=== PATIENT | male | born 1970 | race African-American/Black ===

== ENCOUNTER 2019-10-27 13:22 | Emergency (ER) | payer OTHER ==
--- NOTE | 2019-10-27 13:53 | EDM.PDOC ---
ED HPI GENERAL MEDICAL PROBLEM - General Chief Complaint: Back Pain or Injury Stated Complaint: BACK PAIN Time Seen by Provider: 10/27/19 13:48 Source of Information: Reports: Patient, Old Records, RN, RN Notes Reviewed History Limitations: Reports: No Limitations - History of Present Illness INITIAL COMMENTS - FREE TEXT/NARRATIVE: 49 y.o male presents to ER from home by POV with c/o left sided back and chest pain caused by coughing, that is ongoing for two weeks. Pt states the cough continues as well. Pt reports that he was coughing so hard today when he developed a sharp pain from the sternum area that radiated to the back. Pt reports that pain was so sharp that it was difficult to move. Pt denies taking medication for pain. Pt denies any pain currently. Onset: Gradual Duration: Week(s): (2), Constant Location: Reports: Chest, Back Quality: Reports: Ache, Sharp, Stabbing Severity: Severe Improves with: Reports: Immobilization, Rest Worsens with: Reports: Breathing, Other (Cough), Movement Associated Symptoms: Reports: No Other Symptoms - Related Data Allergies Allergy/AdvReac Type Severity Reaction Status Date / Time No Known Allergies Allergy Verified 10/27/19 15:12 Home Meds: Home Meds ClonazePAM [KlonoPIN] 2 mg PO DAILY 10/27/19 [History] Clotrimazole 1 mg TOP DAILY 10/27/19 [History] Venlafaxine [Effexor] 25 mg PO DAILY 10/27/19 [History] lisinopriL [Lisinopril] 5 mg PO DAILY 10/27/19 [History] Past Medical History Cardiovascular History: Reports: Hypertension Psychiatric History: Reports: Anxiety Social & Family History - Family History Family Medical History: Noncontributory - Tobacco Use Smoking Status *Q: Current Every Day Smoker Tobacco Use Within Last Twelve Months: Cigarettes Years of Tobacco use: 20 Packs/Tins Daily: 0.5 - Caffeine Use Caffeine Use: Reports: None - Recreational Drug Use Recreational Drug Use: No - Living Situation & Occupation Living situation: Reports: with Family ED ROS GENERAL - Review of Systems Review Of Systems: Comprehensive ROS is negative, except as noted in HPI. ED EXAM, GENERAL - Physical Exam Exam: See Below Exam Limited By: No Limitations General Appearance: Alert, WD/WN, No Apparent Distress Nose: Normal Inspection, Normal Mucosa, No Blood Throat/Mouth: Normal Inspection, Normal Lips, Normal Voice, No Airway Compromise Head: Atraumatic, Normocephalic Neck: Normal Inspection, Supple, Non-Tender, Full Range of Motion Respiratory/Chest: No Respiratory Distress, No Accessory Muscle Use, Decreased Breath Sounds, Other (Tenderness left back, and left ant/lateral chest wall, no visible bruising, swelling, redness, rash, or deformity.). No: Crackles, Rales , Rhonchi, Wheezing, Stridor Cardiovascular: Normal Peripheral Pulses, Regular Rate, Rhythm, No Edema GI/Abdominal: Normal Bowel Sounds, Soft, Non-Tender, No Organomegaly, No Distention, No Abnormal Bruit, No Mass Back Exam: Decreased Range of Motion, Paraspinal Tenderness. No: CVA Tenderness (L), CVA Tenderness (R) Extremities: Normal Inspection, Normal Range of Motion, Non-Tender, Normal Capillary Refill, No Pedal Edema Neurological: Alert, Oriented, CN II-XII Intact, Normal Cognition, Normal Gait, No Motor/Sensory Deficits Psychiatric: Normal Mood Skin Exam: Warm, Dry, Intact, Normal Color, No Rash Course - Vital Signs Last Recorded V/S: Last Vital Signs Temp 97.9 F 10/27/19 13:34 Pulse 86 10/27/19 13:34 Resp 18 10/27/19 13:34 BP 143/89 H 10/27/19 13:34 Pulse Ox 98 10/27/19 13:34 - Orders/Labs/Meds Meds: Medications Discontinued Medications Generic Name Dose Route Start Last Admin Trade Name Mallory PRN Reason Stop Dose Admin Azithromycin 500 mg 10/27/19 15:26 Zithromax PO 10/27/19 15:27 ONETIME ONE Benzonatate 200 mg 10/27/19 15:25 Tessalon Perles PO 10/27/19 15:26 ONETIME ONE Cyclobenzaprine HCl 10 mg 10/27/19 15:25 Flexeril PO 10/27/19 15:26 ONETIME ONE - Radiology Interpretation Free Text/Narrative:: [facility] [place] [facility] Final Radiology Report Call: [phone] assistance Online chat: [email or web address] Name: NOEL DING Age: 49Years M Date: 10/27/2019 SSN: -- : [id number] Study: CR CHEST 2V Requesting Physician: CHRISTIANO FONTANA Images: 2 Addl Studies: Provided Clinical History: cough with chest wall back pain Contrast: Contrast Medium: Contrast Amount: Contrast Method: CONFIDENTIALITY STATEMENT This report is intended only for use by the referring physician, and only in accordance with law. If you received this in error, call [phone]. Page 1 of 1 PROCEDURE INFORMATION: Exam: XR Chest, 2 Views Exam date and time: 10/27/2019 2:28 PM Age: 49 years old Clinical indication: Cough; Additional info: Cough with chest wall back pain TECHNIQUE: Imaging protocol: XR of the chest Views: 2 views. COMPARISON: No relevant prior studies available. FINDINGS: Lungs: Atelectatic changes noted within the lung bases without focal pneumonia. Mild bilateral hyperinflation. Pleural space: Unremarkable. No pleural effusion. No pneumothorax. Heart/Mediastinum: Unremarkable. No cardiomegaly. Bones/joints: The thoracic spine demonstrates mild degenerative changes at multiple levels. IMPRESSION: 1. Atelectatic changes noted within the lung bases without focal pneumonia. 2. Mild bilateral hyperinflation. Thank you for allowing us to participate in the care of your patient. Dictated and Authenticated by: Gilberto Dwyer DO 10/27/2019 2:37 PM Central Time ([place] & [place]) Departure - Departure Time of Disposition: 15:31 Disposition: Home, Self-Care 01 Condition: Good Clinical Impression: Muscle spasm of back, Costochondritis, acute Acute bronchitis Qualifiers: Bronchitis organism: other organism Qualified Code(s): J20.8 - Acute bronchitis due to other specified organisms - Discharge Information *PRESCRIPTION DRUG MONITORING PROGRAM REVIEWED*: Not Applicable *COPY OF PRESCRIPTION DRUG MONITORING REPORT IN PATIENT CORRINE: Not Applicable Instructions: Muscle Cramps and Spasms, [id number], Acute Bronchitis, Adult Forms: ED Department Discharge Additional Instructions: Rx: Zithromax 250mg Rx: Cyclobenzaprine 10mg *Do not drive while under the influence of this medication. Quit smoking. Follow up in clinic if not improving in 3 to 4 days. Sepsis Event Note - Evaluation Sepsis Screening Result: No Definite Risk - Focused Exam Vital Signs: Vital Signs Temp Pulse Resp BP Pulse Ox 10/27/19 13:34 97.9 F 86 18 143/89 H 98 Date Exam was Performed: 10/27/19 Time Exam was Performed: 15:38
--- NOTE | 2019-10-27 14:37 | CR ---
PROCEDURE INFORMATION: Exam: XR Chest, 2 Views Exam date and time: 10/27/2019 2:28 PM Age: 49 years old Clinical indication: Cough; Additional info: Cough with chest wall back pain TECHNIQUE: Imaging protocol: XR of the chest Views: 2 views. COMPARISON: No relevant prior studies available. FINDINGS: Lungs: Atelectatic changes noted within the lung bases without focal pneumonia. Mild bilateral hyperinflation. Pleural space: Unremarkable. No pleural effusion. No pneumothorax. Heart/Mediastinum: Unremarkable. No cardiomegaly. Bones/joints: The thoracic spine demonstrates mild degenerative changes at multiple levels. IMPRESSION: 1. Atelectatic changes noted within the lung bases without focal pneumonia. 2. Mild bilateral hyperinflation.
[2019-10-27] MEDS ORDERED: Benzonatate 100 MG Cap PO ONE (15:25)
[2019-10-27] MEDS ORDERED: Cyclobenzaprine 10 MG Tab PO ONE (15:25)
[2019-10-27] MEDS ORDERED: Azithromycin 250 MG Tab PO ONE (15:26)
== END 2019-10-27 15:52 | disposition home or self-care (01) ==
LOC: DL.ED 13:22
DX: J20.8 Acute bronchitis due to other specified organisms (principal); B96.89 Other specified bacterial agents as the cause of diseases classified elsewhere; M62.830 Muscle spasm of back; M94.0 Chondrocostal junction syndrome [Tietze]; I10 Essential (primary) hypertension; F41.9 Anxiety disorder, unspecified; F17.210 Nicotine dependence, cigarettes, uncomplicated; Z79.899 Other long term (current) drug therapy
CPT/HCPCS: 71046; 99284; A9270; 99283

== ENCOUNTER 2019-12-10 15:02 | Emergency (ER) | payer OTHER ==
[2019-12-10] MEDS ORDERED: Sodium Chloride 0.9% 10 ML Syringe FLUSH PRN (15:06)
--- NOTE | 2019-12-10 15:35 | EDM.PDOC ---
ED HPI GENERAL MEDICAL PROBLEM - General Chief Complaint: Chest Pain Stated Complaint: RADIATING CHEST PAIN Time Seen by Provider: 12/10/19 15:20 Source of Information: Reports: Patient History Limitations: Reports: No Limitations - History of Present Illness INITIAL COMMENTS - FREE TEXT/NARRATIVE: This 49 yo male patient reports to the ED with continued intermittent left sided chest pain radiating into his back. The patient reports increased pain when he coughs or sneezes. The patient was seen in the ED about 1 month ago with similar symptoms was started on an antibiotic and a muscle relaxer. The patient reports his pain did get better, but has come back again. The patient has not followed- up with his primary care facility since the previous visit in the ED. Onset: Gradual Duration: Intermittent, Recurring Location: Reports: Chest Quality: Reports: Ache, Dull Severity: Moderate Improves with: Reports: None Worsens with: Reports: None Associated Symptoms: Reports: Cough (intermittent nonproductive) - Related Data Allergies Allergy/AdvReac Type Severity Reaction Status Date / Time No Known Allergies Allergy Verified 12/10/19 15:12 Home Meds: Home Meds ClonazePAM [KlonoPIN] 2 mg PO DAILY 10/27/19 [History] Venlafaxine [Effexor] 25 mg PO DAILY 10/27/19 [History] lisinopriL [Lisinopril] 5 mg PO DAILY 10/27/19 [History] Past Medical History Cardiovascular History: Reports: Hypertension Psychiatric History: Reports: Anxiety Social & Family History - Family History Family Medical History: Noncontributory - Caffeine Use Caffeine Use: Reports: None - Living Situation & Occupation Living situation: Reports: with Family ED ROS GENERAL - Review of Systems Review Of Systems: Comprehensive ROS is negative, except as noted in HPI. ED EXAM, GENERAL - Physical Exam Exam: See Below Exam Limited By: No Limitations General Appearance: Alert, WD/WN, Anxious, Mild Distress Eye Exam: Bilateral Eye: EOMI, Normal Inspection, PERRL Ears: Normal External Exam, Normal Canal, Hearing Grossly Normal, Normal TMs Nose: Normal Inspection, Normal Mucosa, No Blood Throat/Mouth: Normal Inspection, Normal Lips, Normal Teeth, Normal Gums, Normal Oropharynx, Normal Voice, No Airway Compromise Head: Atraumatic, Normocephalic Neck: Normal Inspection, Supple, Non-Tender, Full Range of Motion Respiratory/Chest: No Respiratory Distress, Lungs Clear, Normal Breath Sounds, No Accessory Muscle Use, Chest Non-Tender Cardiovascular: Normal Peripheral Pulses, Regular Rate, Rhythm, No Edema, No Gallop, No JVD, No Murmur, No Rub GI/Abdominal: Normal Bowel Sounds, Soft, Non-Tender, No Organomegaly, No Distention, No Abnormal Bruit, No Mass (Male) Exam: Deferred Rectal (Males) Exam: Deferred Back Exam: Normal Inspection Extremities: Normal Inspection, Normal Range of Motion, Non-Tender, Normal Capillary Refill, No Pedal Edema Neurological: Alert, Oriented, CN II-XII Intact, Normal Cognition, Normal Gait, Normal Reflexes, No Motor/Sensory Deficits Psychiatric: Normal Affect, Normal Mood Skin Exam: Warm, Dry, Intact, Normal Color, No Rash Lymphatic: No Adenopathy Course - Vital Signs Last Recorded V/S: Last Vital Signs Temp 36.4 C 12/10/19 15:10 Pulse 82 12/10/19 15:10 Resp 15 12/10/19 15:10 BP 143/92 H 12/10/19 15:10 Pulse Ox 99 12/10/19 15:10 - Orders/Labs/Meds Orders: Active Orders 24 hr Category Date Time Status EKG Documentation Completion [RC] STAT Care 12/10/19 15:05 Active Ketorolac [Toradol] Med 12/10/19 16:18 Once 30 mg IM ONETIME ONE Sodium Chloride 0.9% [Saline Flush] Med 12/10/19 15:06 Active 10 ml FLUSH ASDIRECTED PRN Saline Lock Insert [OM.PC] Routine Oth 12/10/19 15:06 Ordered Medication Orders Sodium Chloride (Saline Flush) 10 ml FLUSH ASDIRECTED PRN PRN Reason: Keep Vein Open Labs: Laboratory Tests 12/10/19 12/10/19 12/10/19 Range/Units 15:17 15:17 15:17 WBC 6.2 (5.0-10.0) 10^3/uL RBC 4.57 L (4.6-6.2) 10^6/uL Hgb 14.7 (14.0-18.0) g/dL Hct 43.3 (40.0-54.0) % MCV 94.7 (80-100) fL MCH 32.2 (27.0-34.0) pg MCHC 33.9 (33.0-35.0) g/dL Plt Count 150 (150-450) 10^3/uL Neut % (Auto) 70.8 (42.2-75.2) % Lymph % (Auto) 19.7 L (20.5-50.1) % Boyle % (Auto) 8.6 H (2-8) % Eos % (Auto) 0.7 L (1.0-3.0) % Baso % (Auto) 0.2 (0.0-1.0) % D-Dimer, Quantitative < 100 (0-400) ng/mL Sodium 142 (136-145) mmol/L Potassium 4.0 (3.5-5.1) mmol/L Chloride 105 (98-107) mmol/L Carbon Dioxide 31 (21-32) mmol/L Anion Gap 10.0 (7-13) mEq/L BUN 9 (7-18) mg/dL Creatinine 1.04 (0.70-1.30) mg/dL Est Cr Clr Drug Dosing 78.39 mL/min Estimated GFR (MDRD) > 60 BUN/Creatinine Ratio 8.7 (No establ ref range) Glucose 76 (74-99) mg/dL Calcium 8.6 (8.5-10.1) mg/dL Total Bilirubin 0.4 (0.2-1.0) mg/dL AST 16 (15-37) U/L ALT 24 (16-63) U/L Alkaline Phosphatase 59 (46-116) U/L Troponin I < 0.017 (0.000-0.056) ng/mL Total Protein 7.3 (6.4-8.2) g/dL Albumin 3.9 (3.4-5.0) g/dL Globulin 3.4 Albumin/Globulin Ratio 1.1 Meds: Medications Generic Name Dose Route Start Last Admin Trade Name Freq PRN Reason Stop Dose Admin Sodium Chloride 10 ml 12/10/19 15:06 Saline Flush FLUSH ASDIRECTED PRN Keep Vein Open Departure - Departure Time of Disposition: 16:18 Disposition: Home, Self-Care 01 Condition: Fair Clinical Impression: Costochondritis, acute Instructions: Costochondritis, Yuda-dd-[id number], Nonspecific Chest Pain, Adult, Houk-ri-Prop Forms: ED Department Discharge Care Plan Goals: The patient was advised of the examination, lab, EKG and x-ray results during the visit. The patient was given an injection of Toradol while in the ED. The patient was discharged with a script for Toradol (10 mg) #20 to take 1 by mouth every 6 hours. The patient was encouraged to take the muscle relaxers that he was given at the last visit at bedtime. If the patient has any additional symptoms or concerns, the patient should either return to the emergency depar tment or visit his primary care facility. Sepsis Event Note (ED) - Evaluation Sepsis Screening Result: No Definite Risk - Focused Exam Vital Signs: Vital Signs Temp Pulse Resp BP Pulse Ox 12/10/19 15:10 36.4 C 82 15 143/92 H 99 - My Orders Last 24 Hours: My Active Orders 12/10/19 15:05 EKG Documentation Completion [RC] STAT 12/10/19 15:06 Sodium Chloride 0.9% [Saline Flush] 10 ml FLUSH ASDIRECTED PRN Saline Lock Insert [OM.PC] Routine 12/10/19 16:18 Ketorolac [Toradol] 30 mg IM ONETIME ONE - Assessment/Plan Last 24 Hours: My Active Orders 12/10/19 15:05 EKG Documentation Completion [RC] STAT 12/10/19 15:06 Sodium Chloride 0.9% [Saline Flush] 10 ml FLUSH ASDIRECTED PRN Saline Lock Insert [OM.PC] Routine 12/10/19 16:18 Ketorolac [Toradol] 30 mg IM ONETIME ONE
[2019-12-10 15:46] LABS: CHLORIDE,CL 105 mmol/L (98-107); SODIUM,NA 142 mmol/L (136-145)
--- NOTE | 2019-12-10 15:47 | CR ---
EXAMINATION: Chest 1V Frontal SEX: Male AGE: 49 years CLINICAL HISTORY: 49-year-old male emergency department with CHEST PAIN. (Comparison 27 Oct 2019) Interpretation: No new evidence cardiopulmonary abnormality. Hypertrophic marginal spondylosis mid dorsal spine. Normal cardiac size and configuration. No pulmonary vascular congestion, cephalization of flow, alveolar edema or dependent pleural effusion (external monitoring coordinator leads). No new lung mass, hilar lymphadenopathy or focal lobar pneumonia. No atelectasis/collapse. No pneumothorax or pneumomediastinum. Midline tracheal bronchial airway unremarkable. CONCLUSION: No acute new cardiopulmonary abnormality since 26 October comparison film.
[2019-12-10] MEDS ORDERED: Ketorolac 30 MG/ML SDV IM ONE (16:18)
== END 2019-12-10 16:57 | disposition home or self-care (01) ==
LOC: DL.ED 15:02
DX: M94.0 Chondrocostal junction syndrome [Tietze] (principal); I10 Essential (primary) hypertension; F41.9 Anxiety disorder, unspecified; Z79.899 Other long term (current) drug therapy
CPT/HCPCS: 36415; 71045; 80053; 84484; 85025; 85379; 93005; 96372; 99285; J1885

== ENCOUNTER 2020-08-05 18:12 | Emergency (ER) | payer OTHER ==
[2020-08-05 19:02] LABS: CORONAVIRUS COVID-19 NAA NEGATIVE (NEGATIVE)
[2020-08-05 21:02] LABS: ANION GAP 12.6 mEq/L (7-13); CHLORIDE,CL 91 mmol/L (98-107); SODIUM,NA 133 mmol/L (136-145)
--- NOTE | 2020-08-05 21:21 | EDM.PDOC ---
ED HPI GENERAL MEDICAL PROBLEM - General Chief Complaint: Gastrointestinal Problem Stated Complaint: HAVING COVID SYMPTOMS Time Seen by Provider: 08/05/20 19:30 Source of Information: Reports: Patient, RN, RN Notes Reviewed History Limitations: Reports: No Limitations - History of Present Illness INITIAL COMMENTS - FREE TEXT/NARRATIVE: Patient presents to the ED via personal vehicle with complaints of nausea and vomiting. The patient states his symptoms began three days ago, 08/02/20, and have maintained in that time. He reports two bouts of emesis per day for the past three days; he denies hematemesis. He denies fever, shaking chills, muscle aches, sore throat, cough, palpitations, shortness of breath, dysuria, hematuria, diarrhea, melena, or hematochezia. He reports fatigue and malaise as he has not been able to eat or drink well over the past few days. He states he is concerned about a COVID infection as he was recently a close contact with someone actively infected with the virus. He has not taken any medications for this problem. He attest to smoking one pack of cigarettes per day; he denies alcohol or recreational drug use. - Related Data Allergies Allergy/AdvReac Type Severity Reaction Status Date / Time No Known Allergies Allergy Verified 08/05/20 18:24 Home Meds: Home Meds Venlafaxine [Effexor] 25 mg PO DAILY 10/27/19 [History] lisinopriL [Lisinopril] 5 mg PO DAILY 10/27/19 [History] Prazosin [Minpress] 08/05/20 [History] lamoTRIgine [LaMICtal] 08/05/20 [History] Past Medical History HEENT History: Reports: None Cardiovascular History: Reports: Hypertension Respiratory History: Reports: Other (See Below) Other Respiratory History: Bronchitis Gastrointestinal History: Reports: None Genitourinary History: Reports: None Musculoskeletal History: Reports: None Neurological History: Reports: Brain Injury Psychiatric History: Reports: Anxiety Other Psychiatric History: Night terrors Endocrine/Metabolic History: Reports: None Hematologic History: Reports: None Immunologic History: Reports: None Oncologic (Cancer) History: Reports: None Dermatologic History: Reports: None Social & Family History - Family History Family Medical History: No Pertinent Family History - Tobacco Use Tobacco Use Status *Q: Current Every Day Tobacco User Years of Tobacco use: 0 Packs/Tins Daily: 0 - Caffeine Use Caffeine Use: Reports: Coffee, Soda - Recreational Drug Use Recreational Drug Use: No - Living Situation & Occupation Living situation: Reports: with Family ED ROS GENERAL - Review of Systems Review Of Systems: Comprehensive ROS is negative, except as noted in HPI. ED EXAM, GI/ABD - Physical Exam Exam: See Below Exam Limited By: No Limitations General Appearance: Alert, No Apparent Distress Eyes: Bilateral: Normal Appearance, EOMI Ears: Normal External Exam, Normal Canal, Hearing Grossly Normal, Normal TMs Nose: Normal Inspection, Normal Mucosa, No Blood Throat/Mouth: Normal Teeth, Normal Gums, Normal Voice, No Airway Compromise. No: Normal Lips (Dry, cracked lips), Normal Oropharynx (Dry mucous membranes) Head: Atraumatic, Normocephalic Neck: Normal Inspection, Supple, Non-Tender, Full Range of Motion. No: Lymphadenopathy (L), Lymphadenopathy (R) Respiratory/Chest: No Respiratory Distress, Lungs Clear, Normal Breath Sounds, No Accessory Muscle Use, Chest Non-Tender Cardiovascular: Normal Peripheral Pulses, Regular Rate, Rhythm, No Edema, No Gallop, No JVD, No Murmur, No Rub GI/Abdominal Exam: Normal Bowel Sounds, Soft, Non-Tender, No Distention, No Mass, Pelvis Stable (Male) Exam: Deferred Rectal (Males) Exam: Deferred Back Exam: Normal Inspection, Full Range of Motion Extremities: Normal Inspection, Normal Range of Motion, Non-Tender, Normal Capillary Refill, No Pedal Edema Neurological: Alert, Oriented, CN II-XII Intact, Normal Cognition, Normal Gait, No Motor/Sensory Deficits Psychiatric: Normal Mood, Flat Affect Skin Exam: Warm, Dry, Normal Color, No Rash. No: Ecchymosis, Erythema, Jaundice, Mottled, Pallor, Petechiae Course - Vital Signs Last Recorded V/S: Last Vital Signs Temp 98.6 F 08/05/20 18:26 Pulse 106 H 08/05/20 18:26 Resp 16 08/05/20 18:26 BP 148/78 H 08/05/20 18:26 Pulse Ox 98 08/05/20 18:26 - Orders/Labs/Meds Labs: Laboratory Tests 08/05/20 08/05/20 08/05/20 Range/Units 18:17 20:39 20:39 WBC 6.9 (5.0-10.0) 10^3/uL RBC 4.66 (4.6-6.2) 10^6/uL Hgb 15.2 (14.0-18.0) g/dL Hct 42.0 (40.0-54.0) % MCV 90.1 D (80-100) fL MCH 32.6 (27.0-34.0) pg MCHC 36.2 H (33.0-35.0) g/dL Plt Count 147 L (150-450) 10^3/uL Neut % (Auto) 48.4 (42.2-75.2) % Lymph % (Auto) 39.8 (20.5-50.1) % Burnett % (Auto) 11.3 H (2-8) % Eos % (Auto) 0.4 L (1.0-3.0) % Baso % (Auto) 0.1 (0.0-1.0) % Sodium 133 L (136-145) mmol/L Potassium 3.6 (3.5-5.1) mmol/L Chloride 91 L D (98-107) mmol/L Carbon Dioxide 33 H (21-32) mmol/L Anion Gap 12.6 (7-13) mEq/L BUN 23 H (7-18) mg/dL Creatinine 1.13 (0.70-1.30) mg/dL Est Cr Clr Drug Dosing TNP Estimated GFR (MDRD) > 60 BUN/Creatinine Ratio 20.4 (No establ ref range) Glucose 93 (74-99) mg/dL Lactic Acid (0.4-2.0) mmol/L Calcium 9.3 (8.5-10.1) mg/dL Magnesium 2.1 (1.8-2.4) mg/dL Total Bilirubin 0.5 (0.2-1.0) mg/dL AST 40 H (15-37) U/L ALT 39 (16-63) U/L Alkaline Phosphatase 55 (46-116) U/L Total Protein 8.1 (6.4-8.2) g/dL Albumin 4.4 (3.4-5.0) g/dL Globulin 3.7 Albumin/Globulin Ratio 1.2 Influenza Type A RNA Negative (NEGATIVE) Influenza Type B RNA Negative (NEGATIVE) SARS-CoV-2 RNA (KEVIN) Negative (NEGATIVE) 08/05/20 Range/Units 20:39 WBC (5.0-10.0) 10^3/uL RBC (4.6-6.2) 10^6/uL Hgb (14.0-18.0) g/dL Hct (40.0-54.0) % MCV (80-100) fL MCH (27.0-34.0) pg MCHC (33.0-35.0) g/dL Plt Count (150-450) 10^3/uL Neut % (Auto) (42.2-75.2) % Lymph % (Auto) (20.5-50.1) % Burnett % (Auto) (2-8) % Eos % (Auto) (1.0-3.0) % Baso % (Auto) (0.0-1.0) % Sodium (136-145) mmol/L Potassium (3.5-5.1) mmol/L Chloride (98-107) mmol/L Carbon Dioxide (21-32) mmol/L Anion Gap (7-13) mEq/L BUN (7-18) mg/dL Creatinine (0.70-1.30) mg/dL Est Cr Clr Drug Dosing Estimated GFR (MDRD) BUN/Creatinine Ratio (No establ ref range) Glucose (74-99) mg/dL Lactic Acid 0.8 (0.4-2.0) mmol/L Calcium (8.5-10.1) mg/dL Magnesium (1.8-2.4) mg/dL Total Bilirubin (0.2-1.0) mg/dL AST (15-37) U/L ALT (16-63) U/L Alkaline Phosphatase (46-116) U/L Total Protein (6.4-8.2) g/dL Albumin (3.4-5.0) g/dL Globulin Albumin/Globulin Ratio Influenza Type A RNA (NEGATIVE) Influenza Type B RNA (NEGATIVE) SARS-CoV-2 RNA (KEVIN) (NEGATIVE) - Re-Assessments/Exams Free Text/Narrative Re-Assessment/Exam: 08/06/20 COVID test negative. CBC unremarkable for acute processes; no indication of bacterial or viral infection. CMP remarkable for mildly low sodium and elevation in BUN at 23. Creatinine and GFR appropriate. No lactic acid elevation noted. Findings of examination and lab work reviewed with patient. Offered patient rehydration therapy as he may be somewhat dehydrated via physical examination and lab work. He states he would prefer to go home and utilize oral rehydration therapy; discussed water as well as electrolyte replace ment options. Will treat ongoing nausea with Zofran ODT 4mg. Patient states he will take a dose here but does not want a prescription to take home. Red flag signs and symptoms which would warrant reevaluation discussed. Patient verbalized understanding and agreement with the plan of care. Departure - Departure Time of Disposition: 21:20 Disposition: Home, Self-Care 01 Condition: Good Clinical Impression: Vomiting, Dehydration, mild, Viral gastroenteritis - Discharge Information *PRESCRIPTION DRUG MONITORING PROGRAM REVIEWED*: Not Applicable *COPY OF PRESCRIPTION DRUG MONITORING REPORT IN PATIENT CORRINE: Not Applicable Instructions: Viral Gastroenteritis, Adult, [id number], Nausea and Vomiting, Adult, [id number], Dehydration, Adult, [id number] Forms: ED Department Discharge Additional Instructions: 1.) Continue to drink small sips of water frequently to avoid dehydration. You may also drink electrolyte replacement drink, Powerade or Gatorade, during your acute illness. 2.) Eat a bland, easily digestible diet while you are not feeling well; avoid spicy, greasy, high-fat foods. 3.) Follow up with your primary care provider in 3-5 days should symptoms not improve or worsen. Sepsis Event Note (ED) - Evaluation Sepsis Screening Result: No Definite Risk
[2020-08-05] MEDS ORDERED: Ondansetron 4 MG Tab.DIS PO ONE (21:27)
== END 2020-08-05 21:35 | disposition home or self-care (01) ==
LOC: DL.ED 18:12
DX: A08.4 Viral intestinal infection, unspecified (principal); E86.0 Dehydration; I10 Essential (primary) hypertension; Z79.899 Other long term (current) drug therapy; Z72.0 Tobacco use; Z20.822 Contact with and (suspected) exposure to COVID-19
CPT/HCPCS: 0240U; 36415; 80053; 83605; 83735; 85025; 99284; A9270

== ENCOUNTER 2020-09-13 13:31 | Emergency (ER) | payer OTHER ==
[2020-09-13] MEDS ORDERED: Fluorescein 1 MG Ophth Strip EYELF ONE (13:52)
[2020-09-13] MEDS ORDERED: Tetracaine HCl/PF 0.5% 4 ML Bottle EYEBOTH ONE (13:52)
--- NOTE | 2020-09-13 14:16 | EDM.PDOC ---
ED HPI GENERAL MEDICAL PROBLEM - General Chief Complaint: Eye Problems Stated Complaint: LEFT EYE HURTS SWOLLEN SENSATIVE TO LIGHT Time Seen by Provider: 09/13/20 13:50 Source of Information: Reports: Patient History Limitations: Reports: No Limitations - History of Present Illness INITIAL COMMENTS - FREE TEXT/NARRATIVE: This 50 yo male patient reports to the ED with left eye swelling and pain. The patient reports he started to notice his symptoms this morning while at home playing video games. The patient denies any trauma or known foreign body involvement. The patient reports he has noticed his eye is watering and he has been rubbing the eye due to discomfort. Onset: Today Duration: Hour(s):, Constant Location: Reports: Face (left eye) Quality: Reports: Ache Severity: Mild Improves with: Reports: None Worsens with: Reports: None Context: Reports: Other Associated Symptoms: Reports: No Other Symptoms Left Eye Pain Score (Numeric/FACES): 1 - Related Data Allergies Allergy/AdvReac Type Severity Reaction Status Date / Time No Known Allergies Allergy Verified 09/13/20 13:42 Home Meds: Home Meds Venlafaxine [Effexor] 25 mg PO DAILY 10/27/19 [History] lisinopriL [Lisinopril] 5 mg PO DAILY 10/27/19 [History] Prazosin [Minpress] 1 cap PO DAILY 08/05/20 [History] lamoTRIgine [LaMICtal] 150 mg PO ASDIRECTED PRN 08/05/20 [History] Lurasidone HCl [Latuda] 40 mg PO DAILY 09/13/20 [History] Past Medical History HEENT History: Reports: None Cardiovascular History: Reports: Hypertension Respiratory History: Reports: Other (See Below) Other Respiratory History: Bronchitis Gastrointestinal History: Reports: None Genitourinary History: Reports: None Musculoskeletal History: Reports: None Neurological History: Reports: Brain Injury Psychiatric History: Reports: Anxiety Other Psychiatric History: Night terrors Endocrine/Metabolic History: Reports: None Hematologic History: Reports: None Immunologic History: Reports: None Oncologic (Cancer) History: Reports: None Dermatologic History: Reports: None - Infectious Disease History Infectious Disease History: Reports: Chicken Pox - Past Surgical History Head Surgeries/Procedures: Reports: None Social & Family History - Family History Family Medical History: No Pertinent Family History - Tobacco Use Tobacco Use Status *Q: Current Every Day Tobacco User Years of Tobacco use: 4 Packs/Tins Daily: 0.5 Second Hand Smoke Exposure: No - Caffeine Use Caffeine Use: Reports: Coffee - Recreational Drug Use Recreational Drug Use: No - Living Situation & Occupation Living situation: Reports: with Family ED ROS GENERAL - Review of Systems Review Of Systems: Comprehensive ROS is negative, except as noted in HPI. ED EXAM GENERAL W FULL EYE - Physical Exam Exam: See Below Exam Limited By: No Limitations General Appearance: Alert, WD/WN, Moderate Distress Eye Exam: Left Eye: Other (sclera is injected with no evidence of corneal abrasion or foreign material in the eye), Bilateral Eye: EOMI, PERRL Eyelids: Left: Erythema (upper) Conjunctiva & Sclera: Left: Conjunctival Edema, Scleral Icterus Cornea Exam: Bilateral: Normal Appearance Extraocular Movements: Bilateral: Intact Pupils: Normal Accommodation Pupillary Size: Bilateral: 4 mm Pupillary Reaction: Bilateral: Brisk Ears: Normal External Exam, Normal Canal, Hearing Grossly Normal, Normal TMs Nose: Normal Inspection, Normal Mucosa, No Blood Throat/Mouth: Normal Inspection, Normal Lips, Normal Teeth, Normal Gums, Normal Oropharynx, Normal Voice, No Airway Compromise Head: Atraumatic, Normocephalic Neck: Normal Inspection, Supple, Non-Tender, Full Range of Motion Respiratory/Chest: No Respiratory Distress, Lungs Clear, Normal Breath Sounds, No Accessory Muscle Use, Chest Non-Tender Cardiovascular: Normal Peripheral Pulses, Regular Rate, Rhythm, No Edema, No Gallop, No JVD, No Murmur, No Rub GI/Abdominal: Normal Bowel Sounds, Soft, Non-Tender, No Organomegaly, No Distention, No Abnormal Bruit, No Mass (Male) Exam: Deferred (Female) Exam: Deferred Rectal (Males) Exam: Deferred Rectal (Female) Exam: Deferred Back Exam: Normal Inspection, Full Range of Motion, NT Neurological: Alert, Oriented, CN II-XII Intact, Normal Cognition, Normal Gait, Normal Reflexes, No Motor/Sensory Deficits Psychiatric: Anxious Skin Exam: Warm, Dry, Intact, Normal Color, No Rash Lymphatic: No Adenopathy Course - Vital Signs Last Recorded V/S: Last Vital Signs Temp 35.9 C L 09/13/20 13:38 Pulse 97 09/13/20 13:38 Resp 16 09/13/20 13:38 BP 108/67 04/18/21 13:38 Pulse Ox 100 09/13/20 13:38 - Orders/Labs/Meds Orders: Active Orders 24 hr Category Date Time Status Gentamicin [Gentak 0.3% Ophth Oint] Med 09/13/20 21:00 Ordered 1 gm EYELF TID Medication Orders Gentamicin Sulfate (Gentamicin 0.3% Ophth Oint 3.5 Gm Tube) 1 gm EYELF TID LINDA Meds: Medications Generic Name Dose Route Start Last Admin Trade Name Freq PRN Reason Stop Dose Admin Gentamicin Sulfate 1 gm 09/13/20 21:00 Gentamicin 0.3% Ophth Oint 3.5 Gm Tube EYELF TID LINDA Discontinued Medications Generic Name Dose Route Start Last Admin Trade Name Freq PRN Reason Stop Dose Admin Fluorescein Sodium 1 mg 09/13/20 13:52 09/13/20 13:58 Fluorescein 1 Mg Ophth Strip EYELF 09/13/20 13:53 1 mg ONETIME ONE Administration Tetracaine HCl 1 ml 09/13/20 13:52 09/13/20 13:58 Tetracaine Hcl/Pf 0.5% 4 Ml Bottle EYEBOTH 09/13/20 13:53 1 ml ASDIRECTED ONE Administration Departure - Departure Time of Disposition: 14:20 Disposition: Home, Self-Care 01 Condition: Fair Clinical Impression: Conjunctivitis - Discharge Information *PRESCRIPTION DRUG MONITORING PROGRAM REVIEWED*: Not Applicable *COPY OF PRESCRIPTION DRUG MONITORING REPORT IN PATIENT CORRINE: Not Applicable Instructions: Bacterial Conjunctivitis, Adult, [id number] Care Plan Goals: The patient was advised of the examination results during the visit. The patient was given a dose of Gentak (Ophthalmic ointment) to his left eye while in the ED. The patient was discharged with the remainder of the Gentak with instructions to apply a 1/4 inch ribbon to the lower eyelid 4 times per day for 7 days. After applying the Gentak, the patient should blink to assist in spreading the antibiotic throughout the eye. If the patient has any additional symptoms or concerns, the patient should either return to the emergency department or visit his primary care facility. Sepsis Event Note (ED) - Evaluation Sepsis Screening Result: No Definite Risk - Focused Exam Vital Signs: Vital Signs Temp Pulse Resp BP Pulse Ox 09/13/20 13:38 35.9 C L 97 16 108/67 100 - My Orders Last 24 Hours: My Active Orders 09/13/20 21:00 Gentamicin [Gentak 0.3% Ophth Oint] 1 gm EYELF TID - Assessment/Plan Last 24 Hours: My Active Orders 09/13/20 21:00 Gentamicin [Gentak 0.3% Ophth Oint] 1 gm EYELF TID
[2020-09-13] MEDS ORDERED: Polymyxin B/Trimethoprim 10 ML Bottle EYELF ONE (14:27)
== END 2020-09-13 14:40 | disposition home or self-care (01) ==
LOC: DL.ED 13:31
DX: H10.9 Unspecified conjunctivitis (principal); I10 Essential (primary) hypertension; Z72.0 Tobacco use; Z79.899 Other long term (current) drug therapy
CPT/HCPCS: 99282; 99283; A9270-GY

== ENCOUNTER 2020-10-05 06:43 | Emergency (ER) | payer OTHER ==
--- NOTE | 2020-10-05 07:06 | EDM.PDOC ---
ED HPI GENERAL MEDICAL PROBLEM - General Chief Complaint: Respiratory Problem Stated Complaint: BACK SPASMS/UNABLE TO BREATH OR MOVE COMFORTABLY Time Seen by Provider: 10/05/20 07:04 Source of Information: Reports: Patient, Old Records, RN, RN Notes Reviewed History Limitations: Reports: No Limitations - History of Present Illness INITIAL COMMENTS - FREE TEXT/NARRATIVE: Pt presents to ER with c/o sharp left lower chest pains that radiate and shoot into the middle back with coughing, sneezing, deep breathing, and sometimes with certain movements or positions. The pt is a 50yo male smoker who reports intermittent left sided chest pain radiating into his back similar to what he experienced several times in the past. The patient reports increased pain when he coughs or sneezes. The patient was seen in the ED about a year ago with similar symptoms and was treated with an antibiotic and a muscle relaxer. The patient reports his pain did get better, but came back again a few weeks later, and he had to take some additional medicine but doesn't recall what it was. The patient has not followed-up with his primary care facility since the previous visits to the ER. He continues to smoke cigarettes. Denies Hx of asthma, COPD, CAD/SC, hemoptysis, orthopnea, or edema. Onset: Gradual Duration: Week(s): (1), Getting Worse, Intermittent, Waxing/Waning Location: Reports: Chest Quality: Reports: Same as Previous Episode, Sharp Severity: Severe Improves with: Reports: None Worsens with: Reports: Breathing, Other (Cough, Sneeze), Movement Associated Symptoms: Reports: No Other Symptoms Middle Back Pain Score (Numeric/FACES): 7 - Related Data Allergies Allergy/AdvReac Type Severity Reaction Status Date / Time No Known Allergies Allergy Verified 10/05/20 07:10 Home Meds: Home Meds Venlafaxine [Effexor] 25 mg PO DAILY 10/27/19 [History] lisinopriL [Lisinopril] 5 mg PO DAILY 10/27/19 [History] Prazosin [Minpress] 1 cap PO DAILY 08/05/20 [History] lamoTRIgine [LaMICtal] 150 mg PO ASDIRECTED PRN 08/05/20 [History] Lurasidone HCl [Latuda] 40 mg PO DAILY 09/13/20 [History] Past Medical History HEENT History: Reports: None Cardiovascular History: Reports: Hypertension Respiratory History: Reports: Other (See Below) Other Respiratory History: Bronchitis Gastrointestinal History: Reports: None Genitourinary History: Reports: None Musculoskeletal History: Reports: None Neurological History: Reports: Brain Injury Psychiatric History: Reports: Anxiety Other Psychiatric History: Night terrors Endocrine/Metabolic History: Reports: None Hematologic History: Reports: None Immunologic History: Reports: None Oncologic (Cancer) History: Reports: None Dermatologic History: Reports: None - Infectious Disease History Infectious Disease History: Reports: Chicken Pox - Past Surgical History Head Surgeries/Procedures: Reports: None Social & Family History - Family History Family Medical History: No Pertinent Family History - Tobacco Use Tobacco Use Status *Q: Current Every Day Tobacco User Tobacco Use Within Last Twelve Months: Cigarettes Years of Tobacco use: 30 Packs/Tins Daily: 0.5 Smoking Cessation Information Provided To Patient: Patient Refused Second Hand Smoke Exposure: No - Caffeine Use Caffeine Use: Reports: Coffee - Living Situation & Occupation Living situation: Reports: with Family ED ROS GENERAL - Review of Systems Review Of Systems: Comprehensive ROS is negative, except as noted in HPI. ED EXAM, GENERAL - Physical Exam Exam: See Below Exam Limited By: No Limitations General Appearance: Alert, WD/WN, No Apparent Distress Eye Exam: Bilateral Eye: Normal Inspection Nose: Normal Inspection, Normal Mucosa, No Blood Throat/Mouth: Normal Lips, Normal Voice, No Airway Compromise Head: Atraumatic, Normocephalic Neck: Normal Inspection, Non-Tender, Full Range of Motion Respiratory/Chest: No Respiratory Distress, Lungs Clear, No Accessory Muscle Use, Chest Non-Tender. No: Crackles, Rales, Rhonchi, Wheezing Cardiovascular: Regular Rate, Rhythm, No Edema, No Murmur GI/Abdominal: Normal Bowel Sounds, Soft, Non-Tender Back Exam: Full Range of Motion, Paraspinal Tenderness (Muscle spasms in the thoracic region). No: CVA Tenderness (L), CVA Tenderness (R), Vertebral Tenderness Extremities: Normal Inspection, Normal Range of Motion, Non-Tender, Normal Capillary Refill, No Pedal Edema Neurological: Alert, Oriented, CN II-XII Intact, Normal Cognition, Normal Gait, No Motor/Sensory Deficits Psychiatric: Normal Affect, Normal Mood Skin Exam: Warm, Dry, Intact, Normal Color, No Rash #1 Interpretation EKG Date: 10/05/20 Time: 07:21 Rhythm: Other (SR) Rate (Beats/Min): 66 [place]: Normal P-Wave: Present QRS: Other (LVH) ST-T: Elevated (V2, probable normal early repol pattern) Comparison: NA - No Prior EKG Course - Vital Signs Last Recorded V/S: Last Vital Signs Temp 97.3 F 10/05/20 07:10 Pulse 71 10/05/20 07:10 Resp 16 10/05/20 07:10 BP 147/87 H 10/05/20 07:30 Pulse Ox 99 10/05/20 07:10 - Orders/Labs/Meds Orders: Active Orders 24 hr Category Date Time Status EKG 12 Lead [EKG Documentation Completion] [RC] STAT Care 10/05/20 07:14 Active Labs: Laboratory Tests 10/05/20 10/05/20 10/05/20 Range/Units 07:21 07:21 07:21 WBC 4.2 L (5.0-10.0) 10^3/uL RBC 3.91 L (4.6-6.2) 10^6/uL Hgb 12.8 L D (14.0-18.0) g/dL Hct 39.7 L (40.0-54.0) % MCV 101.5 H D (80-100) fL MCH 32.7 (27.0-34.0) pg MCHC 32.2 L (33.0-35.0) g/dL Plt Count 175 (150-450) 10^3/uL Neut % (Auto) 64.1 (42.2-75.2) % Lymph % (Auto) 24.2 (20.5-50.1) % [place] % (Auto) 9.8 H (2-8) % Eos % (Auto) 1.7 (1.0-3.0) % Baso % (Auto) 0.2 (0.0-1.0) % D-Dimer, Quantitative < 100 (0-400) ng/mL Sodium 144 D (136-145) mmol/L Potassium 4.1 (3.5-5.1) mmol/L Chloride 108 H D (98-107) mmol/L Carbon Dioxide 26 (21-32) mmol/L Anion Gap 14.1 H (7-13) mEq/L BUN 8 (7-18) mg/dL Creatinine 0.90 (0.70-1.30) mg/dL Est Cr Clr Drug Dosing 89.60 mL/min Estimated GFR (MDRD) > 60 BUN/Creatinine Ratio 8.9 (No establ ref range) Glucose 102 H (70-99) mg/dL Calcium 8.1 L (8.5-10.1) mg/dL Magnesium 2.2 (1.8-2.4) mg/dL Total Bilirubin 0.3 (0.2-1.0) mg/dL AST 13 L (15-37) U/L ALT 21 (16-63) U/L Alkaline Phosphatase 64 (46-116) U/L Troponin I < 0.017 (0.000-0.056) ng/mL C-Reactive Protein 0.2 (0.0-0.9) mg/dL Total Protein 6.2 L (6.4-8.2) g/dL Albumin 3.2 L (3.4-5.0) g/dL Globulin 3.0 Albumin/Globulin Ratio 1.07 - Radiology Interpretation Free Text/Narrative:: [facility] Final Radiology Report Call: [phone] assistance Online chat: [email or web address] Name: NOEL DING Age: 50Years M Date: 10/05/2020 SSN: -- : [id number] Study: CR CHEST 2V Requesting Physician: CHRISTIANO FONTANA Images: 2 Addl Studies: Provided Clinical History: pleuritic chest pain, smoker Contrast: Contrast Medium: Contrast Amount: Contrast Method: CONFIDENTIALITY STATEMENT This report is intended only for use by the referring physician, and only in accordance with law. If you received this in error, call [phone]. Page 1 of 1 PROCEDURE INFORMATION: Exam: XR Chest Exam date and time: 10/05/2020 7:32 AM Age: 50 years old Clinical indication: Chest pain; Other: Pleuritic; Additional info: Pleuritic chest pain, smoker TECHNIQUE: Imaging protocol: XR of the chest. Views: 2 views. COMPARISON: CR Chest 1V Frontal 12/10/2019 3:34 PM FINDINGS: Lungs: Unremarkable. No consolidation. Pleural spaces: Unremarkable. No pleural effusion. No pneumothorax. Heart/Mediastinum: Unremarkable. No cardiomegaly. Bones/joints: Unremarkable. IMPRESSION: No acute cardiopulmonary disease. Thank you for allowing us to participate in the care of your patient. Dictated and Authenticated by: Jus Francisco MD 10/05/2020 7:48 AM Central Time ([place] & [place]) Departure - Departure Time of Disposition: 08:16 Disposition: Home, Self-Care 01 Condition: Good Clinical Impression: Pleurisy, Costochondral chest pain - Discharge Information *PRESCRIPTION DRUG MONITORING PROGRAM REVIEWED*: Not Applicable *COPY OF PRESCRIPTION DRUG MONITORING REPORT IN PATIENT CORRINE: Not Applicable Instructions: Pleurisy, [id number], Costochondritis, [id number] Forms: ED Department Discharge Additional Instructions: Rx: Prednisone 20mg Rx: Cyclobenzaprine 10mg Rx: Loratadine 10mg Try to quit smoking as smoking makes it very difficult to improve the inflammation that causes this condition. Follow up in clinic with your doctor in one week for recheck. Sepsis Event Note (ED) - Focused Exam Vital Signs: Vital Signs Temp Pulse Resp BP Pulse Ox 10/05/20 07:30 147/87 H 10/05/20 07:15 142/92 H 10/05/20 07:10 97.3 F 71 16 161/105 H 99 - My Orders Last 24 Hours: My Active Orders 10/05/20 07:14 EKG 12 Lead [EKG Documentation Completion] [RC] STAT - Assessment/Plan Last 24 Hours: My Active Orders 10/05/20 07:14 EKG 12 Lead [EKG Documentation Completion] [RC] STAT
[2020-10-05 07:47] LABS: ANION GAP 14.1 mEq/L (7-13); CHLORIDE,CL 108 mmol/L (98-107); SODIUM,NA 144 mmol/L (136-145)
--- NOTE | 2020-10-05 07:48 | CR ---
PROCEDURE INFORMATION: Exam: XR Chest Exam date and time: 10/05/2020 7:32 AM Age: 50 years old Clinical indication: Chest pain; Other: Pleuritic; Additional info: Pleuritic chest pain, smoker TECHNIQUE: Imaging protocol: XR of the chest. Views: 2 views. COMPARISON: CR Chest 1V Frontal 12/10/2019 3:34 PM FINDINGS: Lungs: Unremarkable. No consolidation. Pleural spaces: Unremarkable. No pleural effusion. No pneumothorax. Heart/Mediastinum: Unremarkable. No cardiomegaly. Bones/joints: Unremarkable. IMPRESSION: No acute cardiopulmonary disease.
== END 2020-10-05 08:31 | disposition home or self-care (01) ==
LOC: DL.ED 06:43
DX: R09.1 Pleurisy (principal); I10 Essential (primary) hypertension; Z72.0 Tobacco use; Z79.899 Other long term (current) drug therapy
CPT/HCPCS: 36415; 71046; 80053; 83735; 84484; 85025; 85379; 86140; 93005; 93010; 99284; 99284-25